=== PATIENT | male | born 1940 | race African-American/Black ===

== ENCOUNTER 2016-12-25 09:30 | Emergency (ER) | payer MEDICARE, MEDICAID ==
[~2016-12-25] VITALS: Ht 190.5 cm; Wt 82.0 kg
[~2016-12-25 09:30] MED LIST: NIFE-1
[2016-12-25 14:09] VITALS: BP 131/77
== END 2016-12-25 14:10 | disposition home or self-care (01) ==
LOC: ER 09:51
DX: K94.23 Gastrostomy malfunction (principal); I25.10 Atherosclerotic heart disease of native coronary artery without angina pectoris; I10 Essential (primary) hypertension; K21.9 Gastro-esophageal reflux disease without esophagitis; Z88.0 Allergy status to penicillin; Z86.73 Personal history of transient ischemic attack (TIA), and cerebral infarction without residual deficits; Y83.3 Surgical operation with formation of external stoma as the cause of abnormal reaction of the patient, or of later complication, without mention of misadventure at the time of the procedure; Y92.128 Other place in nursing home as the place of occurrence of the external cause
CPT/HCPCS: 51702; 99284

== ENCOUNTER 2016-12-26 07:55 | Inpatient (IN) | payer MEDICARE, MEDICAID ==
[~2016-12-26] VITALS: Ht 172.7 cm; Wt 76.7 kg
[2016-12-26] MEDS ORDERED: SODIUM CHLORIDE 0.9% 1,000 ML IV ONE ×3 (09:13→13:00)
[2016-12-26] MEDS ORDERED: LORAZEPAM 2MG/ML CPJ IV ONE (09:15)
[2016-12-26 09:46] LABS: BASOPHILS % 0.2 % (0.0-2.0); HEMATOCRIT. 42.5 % (42.0-52.0); HEMOGLOBIN. 14.7 g/dL (14.0-18.0); LYMPHOCYTES % 13.2 % (20.0-50.0); MEAN CORPUSCULAR HEMOGLOBIN 30.8 pg (28.0-32.0); MEAN CORPUSCULAR VOLUME 89.1 fL (80.0-94.0); MEAN PLATELET VOLUME 8.9 fl (7.4-10.4); MONOCYTES % 7.7 % (2.0-8.0); NEUTROPHILS % 78.9 % (40.0-76.0); PLATELET 343 x1000/uL (130-400); RED BLOOD CELL COUNT 4.76 mill/uL (4.7-6.1); RED CELL DISTRIBUTION WIDTH 13.8 % (11.6-14.6)
[2016-12-26 09:59] LABS: CHLORIDE 97 mEq/L (98-107)
[2016-12-26 10:01] LABS: INR 1.2; PROTHROMBIN TIME 12.1 sec
[2016-12-26 10:07] LABS: CARBON DIOXIDE 29 mEq/L (21-32)
[2016-12-26] MEDS ORDERED: ALBUTEROL (0.083%) 2.5MG/3ML NEB HHN ONE (10:30)
[2016-12-26] MEDS ORDERED: DEXTROSE 50% WATER 50ML SYRINGE IV ONE ×3 (10:30→17:43)
[2016-12-26] MEDS ORDERED: INSULIN REGULAR (HUMULIN R) 300UNITS/3ML IV ONE (10:30)
[2016-12-26] MEDS ORDERED: SODIUM POLYSTYRENE SULFONATE 15 G/60 ML BOT PO ONE (10:30)
[2016-12-26] MEDS ORDERED: SODIUM BICARBONATE 8.4% 1 MEQ/ML 50ML SYR IV ONE (10:30)
[2016-12-26] MEDS ORDERED: ONDANSETRON HCL 4MG/2ML VIAL IV PRN (12:00)
[2016-12-26] MEDS ORDERED: IPRATROPIUM/ALBUTEROL 0.5-3(2.5)MG/3ML NEB INH PRN (12:00)
[2016-12-26] MEDS: DEXT 5%/0.45% NACL 1000ML 1,000 ML IV SCH (17:45)
[2016-12-26 21:30] VITALS: BP 108/84
[2016-12-27] VITALS: BP 122/85
[2016-12-27] MEDS ORDERED: ACETAMINOPHEN 650MG SUPP PR PRN (00:15)
[2016-12-27] MEDS ORDERED: PIPERACILLIN/TAZ 2.25G PREMIX 50 ML IV SCH (00:15)
[2016-12-27] MEDS ORDERED: VANCOMYCIN 1250MG in DEXTROSE 5% WATER 250ML IV NR (03:00)
[2016-12-27 04:00] VITALS: BP 129/84
[2016-12-27 04:48] LABS: CLARITY URINE CLOUDY (CLEAR); COLOR URINE DARK YELLOW (YELLOW); GLUCOSE URINE NEGATIVE (NEGATIVE); KETONES URINE TRACE (NEGATIVE); LEUKOCYTE ESTERASE URINE TRACE (NEGATIVE); NITRITE URINE NEGATIVE (NEGATIVE); OCCULT BLOOD URINE NEGATIVE (NEGATIVE); PH URINE 7.5 (4.5-8.0); PROTEIN URINE 1+ (NEGATIVE); SPECIFIC GRAVITY URINE 1.025 (1.005-1.030)
[2016-12-27 05:21] LABS: *AMPHETAMINES SCREEN URINE NEGATIVE (NEGATIVE); *BARBITURATES SCREEN URINE NEGATIVE (NEGATIVE); *BENZODIAZEPINES SCREEN URINE NEGATIVE (NEGATIVE); *COCAINE SCREEN URINE NEGATIVE (NEGATIVE); CANNABINOID URINE SCREEN NEGATIVE (NEGATIVE); METHADONE URINE SCREEN NEGATIVE (NEGATIVE); OPIATES URINE SCREEN NEGATIVE (NEGATIVE); PHENCYCLIDINE URINE SCREEN NEGATIVE (NEGATIVE)
[2016-12-27] MEDS ORDERED: ATOR20TA GT (05:40)
[2016-12-27] MEDS ORDERED: MAGN400O4 GT (05:40)
[2016-12-27] MEDS ORDERED: PROT40 GT (05:40)
[2016-12-27] MEDS ORDERED: ASPI-1159 GT (05:40)
[2016-12-27] MEDS ORDERED: ACET-2178 GT (05:40)
[2016-12-27] MEDS ORDERED: AMLO10TA4 GT (05:40)
[2016-12-27] MEDS ORDERED: BISA-81 GT (05:40)
[2016-12-27] MEDS ORDERED: METO50TA5 GT (05:40)
[2016-12-27] MEDS ORDERED: LISI-604 GT (05:40)
[2016-12-27] MEDS ORDERED: ATOR20TA65 GT (05:40)
[2016-12-27 05:50] LABS: HEMATOCRIT. 39.1 % (42.0-52.0); HEMOGLOBIN. 13.3 g/dL (14.0-18.0); MEAN CORPUSCULAR HEMOGLOBIN 30.3 pg (28.0-32.0); MEAN CORPUSCULAR VOLUME 89.4 fL (80.0-94.0); MEAN PLATELET VOLUME 9.1 fl (7.4-10.4); PLATELET 304 x1000/uL (130-400); RED BLOOD CELL COUNT 4.37 mill/uL (4.7-6.1); RED CELL DISTRIBUTION WIDTH 14.1 % (11.6-14.6)
[2016-12-27 06:58] LABS: PHOSPHORUS 2.5 mg/dL (2.5-4.9)
[2016-12-27] MEDS: DEXT 5%/0.45% NACL 1000ML 1,000 ML IV SCH (07:00)
[2016-12-27 08:00] VITALS: BP 104/74
[2016-12-27] MEDS ORDERED: LORAZEPAM 2MG/ML CPJ IV PRN ×2 (08:30→16:30)
[2016-12-27] MEDS ORDERED: SODIUM BICARBONATE 4% (2.4MEQ) 5ML VIAL IV ONE ×2 (08:31→11:07)
[2016-12-27] MEDS ORDERED: LIDOCAINE HCL 1% 20ML VIAL (Pyxis) INJ ONE ×2 (08:31→11:07)
[2016-12-27] MEDS ORDERED: PANTOPRAZOLE SODIUM 40 MG/VIAL IV SCH (09:00)
[2016-12-27] MEDS ORDERED: LEVOFLOXACIN 500MG PREMIX 100 ML IV NR (09:30)
[2016-12-27 12:00] VITALS: BP 123/75
[2016-12-27] MEDS ORDERED: LIDOCAINE HCL 2% JELLY 5ML ONE (12:05)
[2016-12-27] MEDS ORDERED: IOHEXOL-300 50 ML BOTTLE IV ONE (12:13)
[2016-12-27 13:14] LABS: PLATELET ESTIMATE NORMAL
[2016-12-27 18:03] LABS: INR 1.3; PARTIAL THROMBOPLASTIN TIME 35.1 sec (24.0-34.0); PROTHROMBIN TIME 13.4 sec
[2016-12-27 20:00] VITALS: BP 127/85
[2016-12-27] MEDS: METRONIDAZOLE 500 MG PREMIX 100 ML IV SCH (20:57)
[2016-12-27] MEDS: PANTOPRAZOLE SODIUM 40 MG/VIAL IV SCH (21:01)
[2016-12-28] VITALS: BP 129/79
[2016-12-28] MEDS ORDERED: VANCOMYCIN 750 MG PREMIX 150 ML IV SCH (03:00)
[2016-12-28 04:00] VITALS: BP 116/80
[2016-12-28 06:31] LABS: HEMATOCRIT. 35.3 % (42.0-52.0); HEMOGLOBIN. 11.8 g/dL (14.0-18.0); MEAN CORPUSCULAR HEMOGLOBIN 30.6 pg (28.0-32.0); MEAN CORPUSCULAR VOLUME 91.6 fL (80.0-94.0); MEAN PLATELET VOLUME 9.1 fl (7.4-10.4); PLATELET 248 x1000/uL (130-400); RED BLOOD CELL COUNT 3.86 mill/uL (4.7-6.1); RED CELL DISTRIBUTION WIDTH 14.2 % (11.6-14.6)
[2016-12-28 08:00] VITALS: BP 125/78
[2016-12-28] MEDS: METRONIDAZOLE 500 MG PREMIX 100 ML IV SCH ×2 (08:17→21:51)
[2016-12-28] MEDS: PANTOPRAZOLE SODIUM 40 MG/VIAL IV SCH ×2 (08:17→21:50)
[2016-12-28] MEDS: DEXT 5%/0.45% NACL 1000ML 1,000 ML IV SCH (08:18)
[2016-12-28] MEDS: IPRATROPIUM/ALBUTEROL 0.5-3(2.5)MG/3ML NEB HHN SCH ×3 (11:07→21:23)
[2016-12-28] MEDS: LEVOFLOXACIN 250MG PREMIX 50 ML IV SCH (11:38)
[2016-12-28 12:00] VITALS: BP 106/77
[2016-12-28 12:00] LABS: PLATELET ESTIMATE NORMAL
[2016-12-28 12:42] LABS: BG BASE EXCESS 2.3 mmol/L (-2.0-2.0); BG CARBOXYHEMOGLOBIN 0.2 % (0.5-1.5); BG DEOXYHEMOGLOBIN 4.8 % (0.0-5.0); BG FRACTION INSPIRED OXYGEN 28; BG METHEMOGLOBIN 0.5 % (0.0-1.5); BG OXYGEN SATURATION 95.2 % (92.0-98.5); BG OXYHEMOGLOBIN 94.5 % (94.0-97.0); BG PCO2 32.6 mmHg (35.0-45.0); BG PH 7.502 (7.350-7.450); BG PO2 77.7 mmHg (75.0-100.0); BG SAMPLE SITE RIGHT BRACHIAL; BG TOTAL HEMOGLOBIN 13.2 g/dL (12.0-18.0); BG VENT MODE NASAL CANNULA
[2016-12-28] MEDS ORDERED: VANCOMYCIN 1 G PREMIX 200 ML IV SCH (15:00)
[2016-12-28 16:00] VITALS: BP 117/67
[2016-12-28 16:15] LABS: CLARITY URINE TURBID (CLEAR); COLOR URINE DARK YELLOW (YELLOW); GLUCOSE URINE NEGATIVE (NEGATIVE); KETONES URINE NEGATIVE (NEGATIVE); LEUKOCYTE ESTERASE URINE TRACE (NEGATIVE); NITRITE URINE NEGATIVE (NEGATIVE); OCCULT BLOOD URINE NEGATIVE (NEGATIVE); PROTEIN URINE 1+ (NEGATIVE)
[2016-12-28 20:00] VITALS: BP 105/74
[2016-12-28] MEDS ORDERED: METRONIDAZOLE 500 MG PREMIX 100 ML IV SCH (21:00)
[2016-12-29] VITALS: BP 119/83
[2016-12-29] MEDS: DEXT 5%/0.45% NACL 1000ML 1,000 ML IV SCH (00:57)
[2016-12-29 04:00] VITALS: BP 124/82
[2016-12-29] MEDS: IPRATROPIUM/ALBUTEROL 0.5-3(2.5)MG/3ML NEB HHN SCH ×4 (04:59→21:26)
[2016-12-29 06:32] LABS: HEMATOCRIT. 34.1 % (42.0-52.0); HEMOGLOBIN. 11.6 g/dL (14.0-18.0); MEAN CORPUSCULAR HEMOGLOBIN 30.4 pg (28.0-32.0); MEAN CORPUSCULAR VOLUME 89.5 fL (80.0-94.0); MEAN PLATELET VOLUME 8.8 fl (7.4-10.4); PLATELET 286 x1000/uL (130-400); RED BLOOD CELL COUNT 3.82 mill/uL (4.7-6.1); RED CELL DISTRIBUTION WIDTH 14.1 % (11.6-14.6)
[2016-12-29 08:25] VITALS: BP 113/82
[2016-12-29] MEDS ORDERED: POTASSIUM CHLORIDE 20MEQ TABLET SR PO NR (08:30)
[2016-12-29] MEDS ORDERED: SODIUM CHLORIDE 0.9% 10ML VIAL ONE (09:17)
[2016-12-29] MEDS ORDERED: SIMETHICONE 40 MG/0.6 ML 30ML ONE ×2 (09:17→09:33)
[2016-12-29] MEDS: METRONIDAZOLE 500 MG PREMIX 100 ML IV SCH ×2 (09:28→21:48)
[2016-12-29] MEDS: PANTOPRAZOLE SODIUM 40 MG/VIAL IV SCH ×2 (09:28→21:48)
[2016-12-29] MEDS ORDERED: LEVOFLOXACIN 500MG PREMIX 100 ML IV SCH (09:30)
[2016-12-29 11:42] VITALS: BP 119/78
[2016-12-29] MEDS: LEVOFLOXACIN 250MG PREMIX 50 ML IV SCH (11:48)
[2016-12-29] MEDS ORDERED: MIDAZOLAM HCL 5 MG/5 ML VIAL ONE (12:52)
[2016-12-29] MEDS ORDERED: FENTANYL CITRATE/PF 50MCG/ML 2ML VIAL ONE (12:52)
[2016-12-29] MEDS ORDERED: MIDAZOLAM HCL 5 MG/5 ML VIAL IV PRN (13:34)
[2016-12-29] MEDS ORDERED: FENTANYL CITRATE/PF 50MCG/ML 2ML VIAL IV PRN (13:36)
[2016-12-29] MEDS: POTASSIUM CHLORIDE INJ 30 MEQ in DEXT 5%/0.9% NACL 1,000 ML IV SCH (15:53)
[2016-12-29 17:05] VITALS: BP 123/93
[2016-12-29 17:30] LABS: PLATELET ESTIMATE NORMAL
[2016-12-29 20:00] VITALS: BP 126/85
[2016-12-30] VITALS: BP 134/94
[2016-12-30] MEDS: IPRATROPIUM/ALBUTEROL 0.5-3(2.5)MG/3ML NEB HHN SCH ×4 (01:25→20:04)
[2016-12-30] MEDS: POTASSIUM CHLORIDE INJ 30 MEQ in DEXT 5%/0.9% NACL 1,000 ML IV SCH ×2 (01:37→16:56)
[2016-12-30 04:00] VITALS: BP 114/84
[2016-12-30 06:22] LABS: CHLORIDE 105 mEq/L (98-107)
[2016-12-30 06:34] LABS: HEMOGLOBIN. 12.7 g/dL (14.0-18.0); MEAN CORPUSCULAR VOLUME 90.1 fL (80.0-94.0); MEAN PLATELET VOLUME 8.6 fl (7.4-10.4); PLATELET 300 x1000/uL (130-400); RED BLOOD CELL COUNT 4.22 mill/uL (4.7-6.1); RED CELL DISTRIBUTION WIDTH 14.5 % (11.6-14.6)
[2016-12-30 06:53] LABS: CARBON DIOXIDE 21 mEq/L (21-32); PHOSPHORUS 2.7 mg/dL (2.5-4.9)
[2016-12-30 07:23] VITALS: BP 129/86
[2016-12-30 07:59] LABS: PLATELET ESTIMATE NORMAL
[2016-12-30] MEDS ORDERED: SIMETHICONE 40 MG/0.6 ML 30ML ONE ×2 (09:10→17:24)
[2016-12-30] MEDS ORDERED: SODIUM CHLORIDE 0.9% 10ML VIAL ONE (09:10)
[2016-12-30] MEDS: METRONIDAZOLE 500 MG PREMIX 100 ML IV SCH (09:41)
[2016-12-30] MEDS: PANTOPRAZOLE SODIUM 40 MG/VIAL IV SCH ×2 (09:41→21:37)
[2016-12-30] MEDS: LEVOFLOXACIN 250MG PREMIX 50 ML IV SCH (11:09)
[2016-12-30 11:25] VITALS: BP 152/80
[2016-12-30 16:30] VITALS: BP 119/75
[2016-12-30] MEDS ORDERED: MIDAZOLAM HCL 5 MG/5 ML VIAL ONE ×2 (17:24→17:25)
[2016-12-30] MEDS ORDERED: FENTANYL CITRATE/PF 50MCG/ML 2ML VIAL ONE (17:25)
[2016-12-30] MEDS ORDERED: FENTANYL CITRATE/PF 50MCG/ML 2ML VIAL IV PRN (17:59)
[2016-12-30] MEDS ORDERED: MIDAZOLAM HCL 5 MG/5 ML VIAL IV PRN (17:59)
[2016-12-30 20:00] VITALS: BP 111/77
[2016-12-30] MEDS: METOCLOPRAMIDE HCL 10MG TABLET PO SCH (23:39)
[2016-12-31] VITALS: BP 101/73
[2016-12-31] MEDS: IPRATROPIUM/ALBUTEROL 0.5-3(2.5)MG/3ML NEB HHN SCH ×4 (00:25→20:54)
[2016-12-31 04:00] VITALS: BP 99/78
[2016-12-31 05:39] LABS: HEMATOCRIT. 35.4 % (42.0-52.0); MEAN CORPUSCULAR HEMOGLOBIN 30.6 pg (28.0-32.0); MEAN CORPUSCULAR VOLUME 89.9 fL (80.0-94.0); PLATELET 350 x1000/uL (130-400); RED BLOOD CELL COUNT 3.94 mill/uL (4.7-6.1); RED CELL DISTRIBUTION WIDTH 14.5 % (11.6-14.6)
[2016-12-31] MEDS: METOCLOPRAMIDE HCL 10MG TABLET PO SCH ×2 (05:42→11:22)
[2016-12-31 06:15] LABS: CARBON DIOXIDE 24 mEq/L (21-32); CHLORIDE 108 mEq/L (98-107)
[2016-12-31 08:00] VITALS: BP 120/84
[2016-12-31] MEDS: PANTOPRAZOLE SODIUM 40 MG/VIAL IV SCH ×2 (09:25→20:23)
[2016-12-31 12:00] VITALS: BP 117/77
[2016-12-31 13:55] LABS: PLATELET ESTIMATE NORMAL
[2016-12-31] MEDS ORDERED: SUCRALFATE 1G TABLET PO SCH (14:30)
[2016-12-31 16:00] VITALS: BP 123/80
[2016-12-31] MEDS ORDERED: ACETAMINOPHEN 650MG/20.3ML UDC PO PRN (16:15)
[2016-12-31 18:19] LABS: HEMATOCRIT 35.1 % (42.0-52.0); HEMOGLOBIN 11.7 g/dL (14.0-18.0)
[2016-12-31] MEDS: SUCRALFATE 1 G/10 ML UDC PO SCH ×2 (18:32→20:23)
[2016-12-31 20:14] VITALS: BP 151/79
[2017-01-01] VITALS (7 sets, daily range): BP systolic 126–159; BP diastolic 76–99
[2017-01-01] MEDS: METOCLOPRAMIDE HCL 10MG/2ML VIAL IV SCH ×3 (01:25→12:00)
[2017-01-01] MEDS: IPRATROPIUM/ALBUTEROL 0.5-3(2.5)MG/3ML NEB HHN SCH ×4 (01:31→20:23)
[2017-01-01 07:02] LABS: HEMATOCRIT. 37.3 % (42.0-52.0); HEMOGLOBIN. 12.6 g/dL (14.0-18.0); MEAN CORPUSCULAR HEMOGLOBIN 30.4 pg (28.0-32.0); MEAN CORPUSCULAR VOLUME 90.3 fL (80.0-94.0); MEAN PLATELET VOLUME 8.1 fl (7.4-10.4); PLATELET 367 x1000/uL (130-400); RED BLOOD CELL COUNT 4.13 mill/uL (4.7-6.1); RED CELL DISTRIBUTION WIDTH 14.4 % (11.6-14.6)
[2017-01-01 07:12] LABS: INR 1.3; PARTIAL THROMBOPLASTIN TIME 29.3 sec (24.0-34.0); PROTHROMBIN TIME 13.1 sec
[2017-01-01 07:41] LABS: CARBON DIOXIDE 27 mEq/L (21-32); CHLORIDE 107 mEq/L (98-107)
[2017-01-01] MEDS: SUCRALFATE 1 G/10 ML UDC PO SCH ×3 (10:07→21:00)
[2017-01-01] MEDS: PANTOPRAZOLE SODIUM 40 MG/VIAL IV SCH ×2 (10:07→21:00)
[2017-01-01 12:24] LABS: ATYPICAL LYMPHOCYTES 1
[2017-01-01 12:25] LABS: PLATELET ESTIMATE NORMAL
[2017-01-02] VITALS (7 sets, daily range): BP systolic 113–151; BP diastolic 70–97
[2017-01-02] MEDS: IPRATROPIUM/ALBUTEROL 0.5-3(2.5)MG/3ML NEB HHN SCH ×4 (03:23→20:38)
[2017-01-02 06:03] LABS: HEMATOCRIT. 38.2 % (42.0-52.0); HEMOGLOBIN. 12.5 g/dL (14.0-18.0); MEAN CORPUSCULAR HEMOGLOBIN 29.4 pg (28.0-32.0); MEAN PLATELET VOLUME 7.6 fl (7.4-10.4); PLATELET 357 x1000/uL (130-400); RED BLOOD CELL COUNT 4.25 mill/uL (4.7-6.1); RED CELL DISTRIBUTION WIDTH 14.3 % (11.6-14.6)
[2017-01-02 06:37] LABS: CARBON DIOXIDE 28 mEq/L (21-32); CHLORIDE 107 mEq/L (98-107)
[2017-01-02] MEDS: METOCLOPRAMIDE HCL 10MG/2ML VIAL IV SCH ×3 (06:57→11:58)
[2017-01-02] MEDS: SUCRALFATE 1 G/10 ML UDC PO SCH ×3 (06:57→20:09)
[2017-01-02] MEDS ORDERED: POTASSIUM CHLORIDE 20MEQ/PACKET GT NR (07:00)
[2017-01-02 08:11] LABS: PLATELET ESTIMATE NORMAL
[2017-01-02] MEDS: PANTOPRAZOLE SODIUM 40 MG/VIAL IV SCH (09:43)
== END 2017-01-02 21:15 | DRG 871 ==
LOC: ER 08:01 → SUPCPDRO 11:24 → ENRESERV 17:20 → 7WST 17:20 → EDBEDREQ 21:12
PROVIDERS: ADMIT Family Medicine Adult Medicine; ATTEND Family Medicine Adult Medicine
PROC: 0DH63UZ Insertion of Feeding Device into Stomach, Percutaneous Approach (ICD-10-PCS; principal; 2016-12-29 13:00)
PROC: 0D20XUZ Change Feeding Device in Upper Intestinal Tract, External Approach (ICD-10-PCS; 2016-12-30)
DX: A41.9 Sepsis, unspecified organism (principal); N17.0 Acute kidney failure with tubular necrosis; E43 Unspecified severe protein-calorie malnutrition; T85.528A Displacement of other gastrointestinal prosthetic devices, implants and grafts, initial encounter; E46 Unspecified protein-calorie malnutrition; N39.0 Urinary tract infection, site not specified; J98.11 Atelectasis; R18.8 Other ascites; J90 Pleural effusion, not elsewhere classified; E87.5 Hyperkalemia; R13.12 Dysphagia, oropharyngeal phase; E86.0 Dehydration; I25.10 Atherosclerotic heart disease of native coronary artery without angina pectoris; K21.9 Gastro-esophageal reflux disease without esophagitis; R47.1 Dysarthria and anarthria; F11.10 Opioid abuse, uncomplicated; K44.9 Diaphragmatic hernia without obstruction or gangrene; N40.0 Benign prostatic hyperplasia without lower urinary tract symptoms; N20.0 Calculus of kidney; E87.6 Hypokalemia; N28.1 Cyst of kidney, acquired; I12.9 Hypertensive chronic kidney disease with stage 1 through stage 4 chronic kidney disease, or unspecified chronic kidney disease; N18.9 Chronic kidney disease, unspecified; D64.9 Anemia, unspecified; F03.90 Unspecified dementia, unspecified severity, without behavioral disturbance, psychotic disturbance, mood disturbance, and anxiety; Z86.73 Personal history of transient ischemic attack (TIA), and cerebral infarction without residual deficits; Z95.1 Presence of aortocoronary bypass graft; Z88.0 Allergy status to penicillin; Z68.25 Body mass index [BMI] 25.0-25.9, adult
CPT/HCPCS: 36415; 36598; 36600; 49450; 71010; 74000; 74176; 76705; 76770; 80048; 80053; 80076; 80202; 80305; 81001; 82375; 82805; 82962; 83735; 84100; 84132; 85014; 85018; 85025; 85610; 85730; 86850; 86900; 87040; 87086; 92610; 93005; 93306; 93923; 94640; 94664; 96361; 96374; 96375; 99285; A4216; C1725; C1769; C9113; J1815; J1956; J2060; J2250; J2405; J2765; J3010; J3370; J3480; J3490; J7030; J7042; J7050; J7060; J7620; J8597; Q9967

== ENCOUNTER 2018-07-27 10:49 | Inpatient (IN) | payer MEDICAID, MEDICARE, OTHER ==
[~2018-07-27] VITALS: Ht 180.3 cm; Wt 83.0 kg
[~2018-07-27 10:49] MED LIST changes: +ACET-2178 GT; +AMLO10TA4 GT; +ASPI-1159 GT; +ATOR20TA GT; +ATOR20TA65 GT; +BISA-81 GT; +LISI-604 GT; +METO-539 GT; +MOM GT; +PROT40 GT
[2018-07-27 13:00] LABS: BASOPHILS % 0.4 % (0.0-2.0); EOSINOPHILS % 0.1 % (0.0-5.0); HEMATOCRIT. 40.2 % (42.0-52.0); HEMOGLOBIN. 13.4 g/dL (14.0-18.0); LYMPHOCYTES % 14.4 % (20.0-50.0); MEAN CORPUSCULAR HEMOGLOBIN 29.7 pg (28.0-32.0); MEAN CORPUSCULAR VOLUME 89.4 fL (80.0-94.0); MONOCYTES % 9.7 % (2.0-8.0); NEUTROPHILS % 75.4 % (40.0-76.0); PLATELET 183 x1000/uL (130-400); RED CELL DISTRIBUTION WIDTH 14.3 % (11.6-14.6)
[2018-07-27 13:07] LABS: INR 1.2; PROTHROMBIN TIME 12.2 sec (9.1-11.1)
[2018-07-27 13:08] LABS: CHLORIDE 101 mEq/L (98-107)
[2018-07-27 16:28] LABS: CLARITY URINE CLOUDY (CLEAR); COLOR URINE YELLOW (YELLOW); KETONES URINE NEGATIVE (NEGATIVE); LEUKOCYTE ESTERASE URINE 2+ (NEGATIVE); NITRITE URINE NEGATIVE (NEGATIVE); OCCULT BLOOD URINE 1+ (NEGATIVE); PH URINE 6.5 (4.5-8.0); PROTEIN URINE 1+ (NEGATIVE); SPECIFIC GRAVITY URINE 1.017 (1.005-1.030); UROBILINOGEN URINE 0.2 E.U./dL (0.2-1.0)
[2018-07-27] MEDS ORDERED: ONDANSETRON HCL 4MG/2ML INJ IV PRN (19:00)
[2018-07-27] MEDS ORDERED: ACETAMINOPHEN 325MG TABLET PO PRN (19:00)
[2018-07-27] MEDS ORDERED: LEVOFLOXACIN 500MG PREMIX 100 ML IV SCH (19:00)
[2018-07-27] MEDS ORDERED: IPRATROPIUM/ALBUTEROL 0.5-3(2.5)MG/3ML NEB INH PRN (19:00)
[2018-07-27] MEDS ORDERED: CLONIDINE 0.1MG TABLET PO PRN (19:00)
[2018-07-27] MEDS ORDERED: HYDROCODONE/ACETAMINOPHEN 5/325MG TABLET PO PRN (19:00)
[2018-07-27 20:00] VITALS: BP 118/50
[2018-07-27] MEDS ORDERED: LEVOFLOXACIN 500MG PREMIX 100 ML IV NR (20:00)
[2018-07-27 20:15] VITALS: BP 118/50
[2018-07-27] MEDS: DEXT 5%/0.45% NACL 1000ML 1,000 ML IV SCH (22:38)
[2018-07-28] VITALS: BP 127/73
[2018-07-28 04:00] VITALS: BP 109/70
[2018-07-28 05:52] LABS: BASOPHILS % 0.8 % (0.0-2.0); EOSINOPHILS % 4.7 % (0.0-5.0); HEMATOCRIT. 39.6 % (42.0-52.0); HEMOGLOBIN. 13.4 g/dL (14.0-18.0); LYMPHOCYTES % 19.3 % (20.0-50.0); MEAN CORPUSCULAR HEMOGLOBIN 30.2 pg (28.0-32.0); MEAN CORPUSCULAR VOLUME 89.2 fL (80.0-94.0); MEAN PLATELET VOLUME 8.4 fl (7.4-10.4); MONOCYTES % 12.9 % (2.0-8.0); NEUTROPHILS % 62.3 % (40.0-76.0); PLATELET 186 x1000/uL (130-400); RED BLOOD CELL COUNT 4.44 mill/uL (4.7-6.1); RED CELL DISTRIBUTION WIDTH 14.1 % (11.6-14.6)
[2018-07-28 05:59] LABS: CHLORIDE 104 mEq/L (98-107)
[2018-07-28 06:15] LABS: LDL CHOLESTEROL 46 mg/dL (5-100)
[2018-07-28 06:16] LABS: CREATINE KINASE 172 IU/L (39-308)
[2018-07-28 06:17] LABS: T4 FREE 1.54 ng/dL (0.76-1.46)
[2018-07-28 06:18] LABS: HDL CHOLESTEROL 42 mg/dL (40-59)
[2018-07-28 08:00] VITALS: BP 117/79
[2018-07-28] MEDS: PANTOPRAZOLE SODIUM 40 MG/VIAL IV SCH ×2 (08:53→08:54)
[2018-07-28 12:00] VITALS: BP 109/76
[2018-07-28] MEDS ORDERED: BUPR-43 MT (14:40)
[2018-07-28] MEDS ORDERED: GLYC2TAB21 PO (14:43)
[2018-07-28] MEDS ORDERED: ZOLP5TAB8 MT (14:44)
[2018-07-28] MEDS ORDERED: LEVO500T89 MT (14:44)
[2018-07-28 16:00] VITALS: BP 119/86
[2018-07-28 20:00] VITALS: BP 131/53
[2018-07-28] MEDS: LEVOFLOXACIN 250MG PREMIX 50 ML IV SCH (20:05)
[2018-07-29] VITALS: BP 103/69
[2018-07-29] MEDS: DEXT 5%/0.45% NACL 1000ML 1,000 ML IV SCH (00:13)
[2018-07-29 04:00] VITALS: BP 107/73
[2018-07-29 08:02] VITALS: BP 110/72
[2018-07-29] MEDS: PANTOPRAZOLE SODIUM 40 MG/VIAL IV SCH (09:09)
[2018-07-29 12:00] VITALS: BP_SYST 109; BP_SYST 134; BP_DIAS 63; BP_DIAS 68
[2018-07-29 12:29] LABS: BASOPHILS % 0.7 % (0.0-2.0); EOSINOPHILS % 3.8 % (0.0-5.0); HEMATOCRIT. 40.4 % (42.0-52.0); HEMOGLOBIN. 13.5 g/dL (14.0-18.0); LYMPHOCYTES % 20.8 % (20.0-50.0); MEAN CORPUSCULAR HEMOGLOBIN 30.3 pg (28.0-32.0); MEAN CORPUSCULAR VOLUME 90.6 fL (80.0-94.0); MONOCYTES % 12.4 % (2.0-8.0); NEUTROPHILS % 62.3 % (40.0-76.0); PLATELET 167 x1000/uL (130-400); RED BLOOD CELL COUNT 4.47 mill/uL (4.7-6.1); RED CELL DISTRIBUTION WIDTH 14.4 % (11.6-14.6)
[2018-07-29 12:36] LABS: CHLORIDE 104 mEq/L (98-107)
[2018-07-29 16:00] VITALS: BP 135/78
[2018-07-29] MEDS: LEVOFLOXACIN 250MG PREMIX 50 ML IV SCH (19:58)
[2018-07-29 20:00] VITALS: BP 118/86
[2018-07-29] MEDS: DOCUSATE SODIUM 100MG CAPSULE PO SCH (21:01)
[2018-07-30] VITALS: BP 103/60
[2018-07-30] MEDS: DEXT 5%/0.45% NACL 1000ML 1,000 ML IV SCH ×2 (03:20→22:13)
[2018-07-30 04:00] VITALS: BP 100/70
[2018-07-30 08:00] VITALS: BP 111/76
[2018-07-30] MEDS: DOCUSATE SODIUM 100MG CAPSULE PO SCH (08:15)
[2018-07-30] MEDS: PANTOPRAZOLE SODIUM 40 MG/VIAL IV SCH (08:15)
[2018-07-30 12:00] VITALS: BP 109/68
[2018-07-30 16:00] VITALS: BP 104/74
[2018-07-30 20:00] VITALS: BP 111/69
[2018-07-30] MEDS ORDERED: LEVOFLOXACIN 500MG TABLET PO SCH (20:00)
[2018-07-31] VITALS: BP 101/65
[2018-07-31 04:00] VITALS: BP 119/76
[2018-07-31 07:12] LABS: HEMATOCRIT 37.7 % (42.0-52.0); HEMOGLOBIN 12.9 g/dL (14.0-18.0); MEAN CORPUSCULAR HEMOGLOBIN 30.5 pg (28.0-32.0); MEAN CORPUSCULAR VOLUME 89.4 fL (80.0-94.0); PLATELET 189 x1000/uL (130-400); RED BLOOD CELL COUNT 4.22 mill/uL (4.7-6.1)
[2018-07-31 07:43] VITALS: BP 113/76
[2018-07-31] MEDS: DOCUSATE SODIUM 100MG CAPSULE PO SCH (08:18)
[2018-07-31 08:36] LABS: CHLORIDE 100 mEq/L (98-107)
[2018-07-31] MEDS: PANTOPRAZOLE SODIUM 40 MG/VIAL IV SCH (09:16)
[2018-07-31 12:00] VITALS: BP 103/68
[2018-07-31 12:28] VITALS: BP 103/68
== END 2018-07-31 15:35 | disposition home health service (06) | DRG 377 ==
LOC: ER 10:49 → 8WST 15:21 → EDBEDREQTM 15:28 → EDBEDREQ 15:28 → ENRESERV 16:55
PROVIDERS: ADMIT Internal Medicine; ATTEND Internal Medicine
DX: K29.01 Acute gastritis with bleeding (principal); N17.0 Acute kidney failure with tubular necrosis; N39.0 Urinary tract infection, site not specified; I10 Essential (primary) hypertension; D64.9 Anemia, unspecified; E86.0 Dehydration; I25.10 Atherosclerotic heart disease of native coronary artery without angina pectoris; K21.9 Gastro-esophageal reflux disease without esophagitis; Z96.642 Presence of left artificial hip joint; F03.90 Unspecified dementia, unspecified severity, without behavioral disturbance, psychotic disturbance, mood disturbance, and anxiety; Z95.1 Presence of aortocoronary bypass graft; Z87.891 Personal history of nicotine dependence; Z88.0 Allergy status to penicillin; Z79.899 Other long term (current) drug therapy; Z79.82 Long term (current) use of aspirin; Z86.73 Personal history of transient ischemic attack (TIA), and cerebral infarction without residual deficits
CPT/HCPCS: 36415; 71045; 74176; 80048; 80061; 82550; 83605; 83880; 84439; 84443; 84484; 85027; 93005; 96374; 97116; 97162; 99285; C1893; C9113; J1956